=== PATIENT | female | born 1975 | race Two or more races ===

== ENCOUNTER 2021-12-04 19:29 | Emergency (ER) | payer BC ==
[~2021-12-04] VITALS: Ht 152.4 cm; Wt 57.2 kg
[2021-12-04] MEDS ORDERED: OXYCODONE/APAP 5-325 MG TABLET PO ONE (22:00)
[2021-12-04] MEDS ORDERED: OXYC-128 PO (22:16)
[2021-12-04] MEDS ORDERED: OXYCODONE/APAP 5-325 MG TABLET ONE (22:18)
--- NOTE | 2021-12-04 23:01 | NUR ---
Patient discharged to home in stable condition. Written and verbal after care instructions given. Patient verbalizes understanding of instructions. Stressed follow up or return to ER for worsening s/s. Crutches dispensed. Pt instructed on proper use of crutches. Patient able to demonstrate correct use of crutches.
[2021-12-04 23:04] VITALS: BP 161/97
== END 2021-12-04 23:05 | disposition home or self-care (01) ==
LOC: ER 19:29
DX: S93.401A Sprain of unspecified ligament of right ankle, initial encounter (principal); W18.43XA Slipping, tripping and stumbling without falling due to stepping from one level to another, initial encounter; Y92.89 Other specified places as the place of occurrence of the external cause
CPT/HCPCS: 73610; A4663